=== PATIENT | male | born 1960 | race Caucasian/White ===

== ENCOUNTER → 2019-12-27 | Outpatient (CLI) | payer OTHER ==
[~2019-12-27] MED LIST: Aspirin EC81 MG PO; COMBIVENT RESPIM4 G1 INH; CYCL10 PO; DILT120ERA PO; ELIQUIS5 MG PO; FURO40 PO; GABA300 PO; Lisinopril2.5 MG PO; METO50ER PO; MIRALAX17 GM PO; NYAMYC TOP; OMEP20ER PO; PERCOCET 10-321 EAC1 PO; PERCOCET 10-321 EAC3 PO; POTA10T PO; SERT50 PO
[2019-12-27 22:24] LABS: BASOPHILS ABSOLUTE AUTO 0.03 K/mm3 (0.00-0.23); BASOPHILS PERCENT AUTO 1 % (0-2); EOSINOPHILS ABSOLUTE AUTO 0.34 K/mm3 (0.00-0.68); EOSINOPHILS PERCENT AUTO 5 % (0-6); Hematocrit 30.2 % (37.0-53.0); Hemoglobin 8.7 g/dL (13.5-17.5); IMMATURE GRAN ABSOLUTE AUTO 0.02 K/mm3 (0.00-0.10); IMMATURE GRAN PERCENT AUTO 0 % (0-1); LYMPHOCYTES ABSOLUTE AUTO 0.54 K/mm3 (0.84-5.20); LYMPHOCYTES PERCENT AUTO 8 % (21-46); MONOCYTES PERCENT AUTO 11 % (4-13); Mean Corpuscular HGB 25.8 pg (26.0-34.0); Mean Corpuscular HGB Conc 28.8 g/dL (31.5-36.5); Mean Corpuscular Volume 90 fL (80-100); Mean Platelet Volume 9.6 fL (9.1-12.4); NEUTROPHILS ABSOLUTE AUTO 4.93 K/mm3 (1.96-9.15); NEUTROPHILS PERCENT AUTO 75 % (41-73); Platelet Count 218 K/mm3 (150-400); RDW Coefficient Variation 19.5 % (11.7-14.2); RDW Standard Deviation 63.5 fL (35.1-46.3); Red Blood Cell Count 3.37 M/mm3 (4.30-5.90); White Blood Cell Count 6.56 K/mm3 (4.00-11.30)
== END | disposition home or self-care (01) ==
LOC: EDSTATUS 14:30 → LAB RH 22:16
PROVIDERS: Nurse Practitioner Family
DX: I48.20 Chronic atrial fibrillation, unspecified (principal)
CPT/HCPCS: 85025

== ENCOUNTER 2019-12-28 19:26 | Inpatient (IN) | payer OTHER ==
[~2019-12-28] VITALS: Ht 175.3 cm; Wt 185.9 kg
[2019-12-28] MEDS ORDERED: DILT120ERA PO (19:46)
[2019-12-28] MEDS ORDERED: FURO40 PO (19:46)
[2019-12-28] MEDS ORDERED: Aspirin EC81 MG PO (19:46)
[2019-12-28] MEDS ORDERED: OMEP20ER PO (19:47)
[2019-12-28] MEDS ORDERED: POTA10T PO (19:47)
[2019-12-28] MEDS ORDERED: Lisinopril2.5 MG PO (19:47)
[2019-12-28] MEDS ORDERED: SERT50 PO (19:48)
[2019-12-28] MEDS ORDERED: METO50ER PO (19:48)
[2019-12-28] MEDS ORDERED: ELIQUIS5 MG PO (19:48)
[2019-12-28] MEDS ORDERED: GABA300 PO (19:49)
[2019-12-28] MEDS ORDERED: COMBIVENT RESPIM4 G1 INH (19:49)
[2019-12-28] MEDS ORDERED: MIRALAX17 GM PO (19:50)
[2019-12-28] MEDS ORDERED: PERCOCET 10-321 EAC3 PO (19:52)
[2019-12-28] MEDS ORDERED: NYAMYC TOP (19:53)
[2019-12-28 20:35] LABS: Calcium, Ionized (POC) 1.17 mmol/L (1.10-1.46); Chloride (POC) 100 mmol/L (98-108); Glucose (ISTAT POC) 93 mg/dL (70-99); Hemoglobin (POC) 10.5 g/dL (13.5-17.5); Potassium (POC) 6.7 mmol/L (3.5-5.5); Sodium (POC) 133 mmol/L (135-148); Total CO2 (POC) 28 mmol/L (21-32)
[2019-12-28 22:22] LABS: BASOPHILS ABSOLUTE AUTO 0.05 K/mm3 (0.00-0.23); BASOPHILS PERCENT AUTO 1 % (0-2); EOSINOPHILS ABSOLUTE AUTO 0.45 K/mm3 (0.00-0.68); EOSINOPHILS PERCENT AUTO 6 % (0-6); Hematocrit 32.8 % (37.0-53.0); Hemoglobin 9.1 g/dL (13.5-17.5); IMMATURE GRAN ABSOLUTE AUTO 0.22 K/mm3 (0.00-0.10); IMMATURE GRAN PERCENT AUTO 3 % (0-1); LYMPHOCYTES ABSOLUTE AUTO 0.57 K/mm3 (0.84-5.20); LYMPHOCYTES PERCENT AUTO 8 % (21-46); MONOCYTES ABSOLUTE AUTO 0.98 K/mm3 (0.16-1.47); MONOCYTES PERCENT AUTO 13 % (4-13); Mean Corpuscular HGB 25.2 pg (26.0-34.0); Mean Corpuscular HGB Conc 27.7 g/dL (31.5-36.5); Mean Corpuscular Volume 91 fL (80-100); Mean Platelet Volume 9.6 fL (9.1-12.4); NEUTROPHILS ABSOLUTE AUTO 5.26 K/mm3 (1.96-9.15); NEUTROPHILS PERCENT AUTO 70 % (41-73); Platelet Count 225 K/mm3 (150-400); RDW Coefficient Variation 19.3 % (11.7-14.2); RDW Standard Deviation 64.4 fL (35.1-46.3); Red Blood Cell Count 3.61 M/mm3 (4.30-5.90); White Blood Cell Count 7.53 K/mm3 (4.00-11.30)
[2019-12-28 22:26] LABS: Bun/Creatinine Ratio 37.4 (12.0-20.0); Creatinine, Blood 1.87 mg/dL (0.60-1.20)
[2019-12-28 22:27] LABS: Albumin, Blood 2.8 g/dL (3.4-5.0); Albumin/Globulin Ratio 0.5 (0.8-1.8); Bilirubin, Total 0.7 mg/dL (0.1-1.0); Calcium, Blood 8.8 mg/dL (8.5-10.1); Globulin, Blood 5.5 g/dL (2.2-4.0); Total Protein, Blood 8.3 g/dL (6.4-8.2)
[2019-12-28 22:28] LABS: Potassium, Blood 6.4 mmol/L (3.5-5.5)
[2019-12-28 22:32] LABS: Magnesium, Blood 2.8 mg/dL (1.6-2.4)
--- NOTE | 2019-12-29 01:15 | NUR ---
ADMIT FROM ED. PT TX TO ICU BED VIA SLIDER SHEET. PT UNABLE TO ASSIST WITH TX, STATES HE IS MUCH WEAKER THAN USUAL. PT ALERT AND ORIENTED BUT A POOR HISTORIAN. UNABLE TO EXPLAIN THE WRAPS ON HIS LEGS NOR WHY HE CURRENTLY RESIDES AT [facility]. A-FIB ON THE WOOL CLASSER. ON 2L O2 VIA NC. WILL CONTINUE TO MONITOR.
[2019-12-29 02:30] LABS: BASOPHILS ABSOLUTE AUTO 0.05 K/mm3 (0.00-0.23); BASOPHILS PERCENT AUTO 1 % (0-2); EOSINOPHILS ABSOLUTE AUTO 0.42 K/mm3 (0.00-0.68); EOSINOPHILS PERCENT AUTO 7 % (0-6); Hematocrit 33.1 % (37.0-53.0); Hemoglobin 9.4 g/dL (13.5-17.5); IMMATURE GRAN ABSOLUTE AUTO 0.02 K/mm3 (0.00-0.10); IMMATURE GRAN PERCENT AUTO 0 % (0-1); LYMPHOCYTES ABSOLUTE AUTO 0.53 K/mm3 (0.84-5.20); LYMPHOCYTES PERCENT AUTO 8 % (21-46); MONOCYTES ABSOLUTE AUTO 0.71 K/mm3 (0.16-1.47); MONOCYTES PERCENT AUTO 11 % (4-13); Mean Corpuscular HGB 25.8 pg (26.0-34.0); Mean Corpuscular HGB Conc 28.4 g/dL (31.5-36.5); Mean Corpuscular Volume 91 fL (80-100); Mean Platelet Volume 9.4 fL (9.1-12.4); NEUTROPHILS ABSOLUTE AUTO 4.77 K/mm3 (1.96-9.15); NEUTROPHILS PERCENT AUTO 73 % (41-73); Platelet Count 229 K/mm3 (150-400); RDW Coefficient Variation 19.5 % (11.7-14.2); RDW Standard Deviation 65.1 fL (35.1-46.3); Red Blood Cell Count 3.64 M/mm3 (4.30-5.90)
[2019-12-29 02:51] LABS: Calcium, Blood 8.7 mg/dL (8.5-10.1); Creatinine, Blood 1.84 mg/dL (0.60-1.20); Potassium, Blood 6.3 mmol/L (3.5-5.5)
[2019-12-29 07:54] LABS: Albumin, Blood 2.7 g/dL (3.4-5.0); Anion Gap 2 mmol/L (6-16); Blood Urea Nitrogen 67 mg/dL (8-24); Bun/Creatinine Ratio 38.7 (12.0-20.0); CO2, Blood 29 mmol/L (21-32); Calcium, Blood 8.8 mg/dL (8.5-10.1); Chloride, Blood 104 mmol/L (98-108); Creatinine, Blood 1.73 mg/dL (0.60-1.20); Glomerular Filtration Rate 43 (60-); Glucose, Blood 85 mg/dL (70-99); Phosphorus, Blood 5.4 mg/dL (2.5-4.9); Potassium, Blood 5.9 mmol/L (3.5-5.5); Sodium, Blood 135 mmol/L (136-145)
[2019-12-29 12:27] LABS: Hematocrit 35.5 % (37.0-53.0); Hemoglobin 9.6 g/dL (13.5-17.5)
[2019-12-29 12:45] LABS: Calcium, Blood 9.1 mg/dL (8.5-10.1); Creatinine, Blood 1.71 mg/dL (0.60-1.20); Potassium, Blood 5.9 mmol/L (3.5-5.5)
--- NOTE | 2019-12-29 18:34 | NUR ---
SHIFT SUMMARY PT IS ALERT AND ORIENTED 2-3. SCOPE FOR TODAY WITH DR WARD WAS CANCELLED PT'S POTASSIUM LEVEL DIDN'T DECREASE ENOUGH. RECHECK K LEVEL DUE AT 1900 FOR POST MEDICATION INTERVENTIONS TO DECREASE POTASSIUM. WOUND CARE PROVIDED TO BLE WITH UNNA BOOTS APPLIED PER ORDERS. PT'S BP DID DECREASE THIS AFTERNOON AFTER IV LASIX, RECOVERED WITH SMALL FLUID BOLUS. MONITOR HAS SHOWN PT TO BE IN A-FIB, RATE CONTROLLED. PT REMAINS ON HOME O2 LEVEL OF 2L VIA NC.
[2019-12-30 03:48] LABS: BASOPHILS ABSOLUTE AUTO 0.03 K/mm3 (0.00-0.23); BASOPHILS PERCENT AUTO 1 % (0-2); EOSINOPHILS PERCENT AUTO 8 % (0-6); Hematocrit 31.8 % (37.0-53.0); Hemoglobin 8.8 g/dL (13.5-17.5); IMMATURE GRAN ABSOLUTE AUTO 0.03 K/mm3 (0.00-0.10); IMMATURE GRAN PERCENT AUTO 1 % (0-1); LYMPHOCYTES PERCENT AUTO 8 % (21-46); MONOCYTES ABSOLUTE AUTO 0.76 K/mm3 (0.16-1.47); MONOCYTES PERCENT AUTO 14 % (4-13); Mean Corpuscular HGB 25.7 pg (26.0-34.0); Mean Corpuscular HGB Conc 27.7 g/dL (31.5-36.5); Mean Corpuscular Volume 93 fL (80-100); Mean Platelet Volume 9.2 fL (9.1-12.4); NEUTROPHILS ABSOLUTE AUTO 3.74 K/mm3 (1.96-9.15); NEUTROPHILS PERCENT AUTO 70 % (41-73); Platelet Count 189 K/mm3 (150-400); RDW Coefficient Variation 19.1 % (11.7-14.2); RDW Standard Deviation 65.1 fL (35.1-46.3); Red Blood Cell Count 3.42 M/mm3 (4.30-5.90); White Blood Cell Count 5.36 K/mm3 (4.00-11.30)
[2019-12-30 04:06] LABS: Bun/Creatinine Ratio 37.2 (12.0-20.0); Calcium, Blood 8.6 mg/dL (8.5-10.1); Creatinine, Blood 1.56 mg/dL (0.60-1.20); Potassium, Blood 5.2 mmol/L (3.5-5.5)
--- NOTE | 2019-12-30 05:25 | NUR ---
shift summary pt transferred from icu and used overhead lift to get pt onto hospital bed. pt is of bariatric size and charge nurse called/requested baritric bed to help make pt rest more comfortably/make bed changes/turns safer. cbg 92. pt alert and oriented x2 with intermittent confusion. on 3lnc - maintaining sats >90%. verified tele with monitor room - a fib, with rate controlled. no c/o chest pain. able to let staff know when needs to urinate - voided 750ml. incontinent of stool - no bm overnight. pt made npo after midnight in the event he would get egd today. hgb 8.8/hct 31.8, potassium 5.2. pt c/o pain in bilat legs - oxy x1. vss. call light within reach, bed in lowest position. will continue to monitor.
--- NOTE | 2019-12-30 19:02 | NUR ---
PAIN MANAGEMENT CALLED INTO ROOM BY PATIENT REQUESTING PAIN MEDICATION. REPORTS 8/10 PAIN IN BILATERAL LEGS. REPORTS AT HOME HE TAKES HIS OXYCODONE/ACETAMINOPHEN EVERY 6 HOURS INSTEAD OF EVERY 12. UNABLE TO FIND RECORD OF THIS BASED ON PT'S HOME MEDICATION LIST. NOTIFIED DALE CISNEROS NP OF PATIENT REQUEST. NEW ORDER FOR ONE TIME DOSE OF OXYCODONE/ACETAMINOPHEN 5-325.
--- NOTE | 2019-12-30 19:10 | NUR ---
ASSUMED CARE PT A&O X3; SEEMS FORGETFUL AT TIMES; WATCHING TV W/ NO DISTRESS NOTED; VSS; AFIB NOTED ON TELE; O2 SATS >93 ON 3L NC; CALL LIGHT IN REACH; BED IN LOWEST POSITION.
--- NOTE | 2019-12-30 19:43 | NUR ---
SHIFT SUMMARY PT A&Ox2-3; CONFUSED AT TIMES; APPEARS TO BE SLEEPING FOR MAJORITY OF SHIFT. CBG THIS AM 58; NOTIIFED DR ALSTON AND APPLE JUICE PROVIDED; RECEHCEK AT 53; NOTIFIED DR ALSTON WITH NEW ORDERS FOR 1 AMP OF D50; RECHECK AT 91. CALLED DR BERGMAN TO CLARIFY OF PLANS OF PROCEDURE; OK TO FEED PATIENT AND PLANS FOR SCOPE ON 12/30 PLANS FOR NPO AT RI. CBG FOR REMAINDER OF SHIFT 70'S. PT REPORTS CHRONIC PAIN TO BLE; MEDICATED PER EMAR. PT SOB WITH ACTIVITY ON 3L O2 VIA NC; HOME DOSE 2L O2 VIA NC. PT DENIES CHEST PAIN, NAUSEA AND DIZZINESS. MEPILEX PLACED TO COCCYX; EXCORIATION TO PERIAREA. VSS. PT REPOSTIONED Q2 HRS ALLOWED. NO OTHER ACUTE CHANGES NOTED DURING SHIFT. REPORT GIVEN TO ONCOMING RN.
[2019-12-31 04:12] LABS: BASOPHILS ABSOLUTE AUTO 0.04 K/mm3 (0.00-0.23); BASOPHILS PERCENT AUTO 1 % (0-2); EOSINOPHILS ABSOLUTE AUTO 0.34 K/mm3 (0.00-0.68); EOSINOPHILS PERCENT AUTO 7 % (0-6); Hematocrit 31.6 % (37.0-53.0); Hemoglobin 8.6 g/dL (13.5-17.5); IMMATURE GRAN ABSOLUTE AUTO 0.02 K/mm3 (0.00-0.10); IMMATURE GRAN PERCENT AUTO 0 % (0-1); LYMPHOCYTES ABSOLUTE AUTO 0.45 K/mm3 (0.84-5.20); LYMPHOCYTES PERCENT AUTO 9 % (21-46); MONOCYTES ABSOLUTE AUTO 0.67 K/mm3 (0.16-1.47); MONOCYTES PERCENT AUTO 13 % (4-13); Mean Corpuscular HGB Conc 27.2 g/dL (31.5-36.5); Mean Corpuscular Volume 92 fL (80-100); Mean Platelet Volume 9.2 fL (9.1-12.4); NEUTROPHILS ABSOLUTE AUTO 3.72 K/mm3 (1.96-9.15); NEUTROPHILS PERCENT AUTO 71 % (41-73); Platelet Count 200 K/mm3 (150-400); RDW Coefficient Variation 18.8 % (11.7-14.2); RDW Standard Deviation 63.2 fL (35.1-46.3); Red Blood Cell Count 3.44 M/mm3 (4.30-5.90); White Blood Cell Count 5.24 K/mm3 (4.00-11.30)
[2019-12-31 05:11] LABS: Anion Gap 2 mmol/L (6-16); Blood Urea Nitrogen 49 mg/dL (8-24); CO2, Blood 30 mmol/L (21-32); Calcium, Blood 8.7 mg/dL (8.5-10.1); Chloride, Blood 107 mmol/L (98-108); Creatinine, Blood 1.29 mg/dL (0.60-1.20); Glomerular Filtration Rate >60 (60-); Glucose, Blood 77 mg/dL (70-99); Magnesium, Blood 2.5 mg/dL (1.6-2.4); Sodium, Blood 139 mmol/L (136-145)
--- NOTE | 2019-12-31 05:13 | NUR ---
SHIFT SUMMARY PT A&O X 3; DENIES CHEST PAIN; VSS; AFIB NOTED ON TELE; O2 SATS >93 ON 4L NC; PT STATES HE IS ON 2L NC AT BASELINE; DENIES SOB; PT SLEPT SEVERAL HOURS; NPO AT MIDNIGHT IN PREPARATION FOR EGD; CALL LIGHT IN REACH; BED IN LOWEST POSITION; WILL CONTINUE TO MONITOR CLOSELY UNTIL HAND OFF TO DAY SHIFT RN.
--- NOTE | 2019-12-31 11:20 | NUR ---
ASSUMED CARE OF PATIENT. REPORT RECEIVED FROM FAMILIA PLASENCIA RN.
[2019-12-31] MEDS ORDERED: CYCL10 PO (11:58)
[2019-12-31] MEDS ORDERED: PERCOCET 10-321 EAC1 PO ×2 (11:59)
--- NOTE | 2019-12-31 13:12 | NUR ---
CALLED DR. HERMAN. NOTIFIED HIM PATIENT'S CBG AT 1100 WAS 64, CBG AT 1200 WAS 72, AND CBG AT 1300 WAS 66. PATIENT HAS BEEN NPO SINCE MIDNIGHT. PER DAYSURGERY, HIS PROCEDURE IS SCHEDULED FOR 1500. ORDERS RECEIVED FOR 1 AMP D50 IV X1 NOW. PATIENT ALSO REPORTING PAIN. HE TAKES HIS OXYCODONE Q6H PRN PAIN AT HOME AND IT IS SCHEDULED FOR Q12H HERE ON THE EMAR. ORDERS RECEIVED FOR OXYCODONE 10 / ACETAMINOPHEN 325 1 TAB PO Q6H PRN PAIN.
--- NOTE | 2019-12-31 16:16 | NUR ---
PATIENT DOWN TO DAYSURGERY VIA BED. NOTIFIED DAY SURGERY RN THAT THE TWO ENEMAS THAT THE PATIENT RECEIVED HAVE NOT YET PRODUCED ANY STOOL.
--- NOTE | 2019-12-31 16:20 | NUR ---
INTO [facility] VIA [facility] ADMISSION TO UNIT STARTED.
--- NOTE | 2019-12-31 16:47 | NUR ---
12/31/19 9607 Jass Asher See Anesthesia record. Patient to ENDO 1MONITOR INTACT WITH CONTINUOUS PULSE OXIMETRY AND INTERMITTENT BP.O2 VIA N/C INTACT THROUGHOUT SEDATION/PROCEDURE.
--- NOTE | 2019-12-31 17:55 | NUR ---
PATIENT RETURNED TO ROOM FROM DAYSURGERY AT 1725. A/OX3. HE DOES NOT WANT TO SIT IN THE RECLINER. WANTS TO GO BACK TO BED. USED CEILING LIFT TO TRANSFER PATIENT FROM [facility] TO BED. ADA DIET NOTED, PATIENT GIVEN APPLE JUICE. AT 1755, SPO2 NOTED TO BE IN UPPER 80'S ON 3L O2 VIA NC. INCREASED O2 TO 4L AND SPO2 INCREASED TO 90'S.
--- NOTE | 2019-12-31 19:21 | NUR ---
ASSUMED CARE OF PATIENT. REPORT RECEIVED FROM FAMILIA PLASENCIA RN.
--- NOTE | 2019-12-31 23:30 | NUR ---
ASSUMPTION OF CARE RECEIVED BEDSIDE REPORT FROM COURTNEY ROJO AND ASSUMED CARE. PT IS RESTING IN BARIATRIC BED, HOB ELEVATED, AWAKE AND ALERT. DENIES COMPLAINTS AT THIS TIME. VSS, NC AT 2L O2, TELE SHOWS AFLUTTER IN THE 80'S. DISCHARGE PLANNING TO [facility], POSSIBLY IN THE AM. WILL CONTINUE TO MONITOR AND WILL CONTINUE PLAN OF CARE.
--- NOTE | 2019-12-31 23:56 | NUR ---
SHIFT SUMMARY: PATIENT A/OX3. OXYCODONE GIVEN FOR CHRONIC PAIN. HAD LOW CBG TODAY WHILE HE WAS NPO, 1 AMP D50 GIVEN. ENEMAS UNSUCCESSFUL IN PRODUCING STOOL. HAD PROCEDURE THIS AFTERNOON. NOW TOLERATING ADA DIET. TURNED Q2H. PREVENTATIVE ALLEVYN DRESSING PLACED TO COCCYX AND ALLEVYN DRESSING PLACED TO OPEN SORE ON PATIENT'S POSTERIOR LEFT UPPER THIGH, PICTURES TAKEN FOR CHART WITH PATIENT CONSENT. UNNA BOOTS IN PLACE. REPORT GIVEN TO ALIA BERNAL.
[2020-01-01 04:26] LABS: BASOPHILS ABSOLUTE AUTO 0.03 K/mm3 (0.00-0.23); BASOPHILS PERCENT AUTO 1 % (0-2); EOSINOPHILS ABSOLUTE AUTO 0.34 K/mm3 (0.00-0.68); EOSINOPHILS PERCENT AUTO 8 % (0-6); Hematocrit 31.3 % (37.0-53.0); Hemoglobin 8.5 g/dL (13.5-17.5); IMMATURE GRAN ABSOLUTE AUTO 0.01 K/mm3 (0.00-0.10); IMMATURE GRAN PERCENT AUTO 0 % (0-1); LYMPHOCYTES ABSOLUTE AUTO 0.46 K/mm3 (0.84-5.20); LYMPHOCYTES PERCENT AUTO 10 % (21-46); MONOCYTES ABSOLUTE AUTO 0.64 K/mm3 (0.16-1.47); MONOCYTES PERCENT AUTO 14 % (4-13); Mean Corpuscular HGB 25.1 pg (26.0-34.0); Mean Corpuscular HGB Conc 27.2 g/dL (31.5-36.5); Mean Corpuscular Volume 93 fL (80-100); Mean Platelet Volume 9.3 fL (9.1-12.4); NEUTROPHILS ABSOLUTE AUTO 3.07 K/mm3 (1.96-9.15); NEUTROPHILS PERCENT AUTO 67 % (41-73); Platelet Count 186 K/mm3 (150-400); RDW Coefficient Variation 18.9 % (11.7-14.2); RDW Standard Deviation 64.4 fL (35.1-46.3); Red Blood Cell Count 3.38 M/mm3 (4.30-5.90); White Blood Cell Count 4.55 K/mm3 (4.00-11.30)
[2020-01-01 04:54] LABS: Anion Gap 3 mmol/L (6-16); Blood Urea Nitrogen 39 mg/dL (8-24); Bun/Creatinine Ratio 31.7 (12.0-20.0); CO2, Blood 30 mmol/L (21-32); Chloride, Blood 107 mmol/L (98-108); Creatinine, Blood 1.23 mg/dL (0.60-1.20); Glomerular Filtration Rate >60 (60-); Glucose, Blood 81 mg/dL (70-99); Potassium, Blood 4.6 mmol/L (3.5-5.5); Sodium, Blood 140 mmol/L (136-145)
--- NOTE | 2020-01-01 07:55 | NUR ---
SHIFT SUMMARY PT HAS RESTED WELL, C/O CHRONIC PAIN "BELOW THE WAIST" AND EXPRESSED RELIEF WITH PRN MED (SEE MAR). NO ACUTE CHANGES THROUGH THE SHIFT, PLAN IS FOR DISCHARGE BACK TO [facility] - POSSIBLY TODAY. IMPROVING KIDNEY FUNCTION ON LABS THIS AM AND STABLE H&H. PLAN FOR OUTPT SCOPE IN THE FUTURE SINCE FLEX SIGMOID WAS UNABLE TO BE PERFORMED YESTERDAY. WILL GIVE BEDSIDE REPORT TO JOAQUÍN.
--- NOTE | 2020-01-01 15:52 | NUR ---
PT DISCHARGED TO [facility], REPORT HAS BEEN GIVEN TO JAYDA NURSE AT [facility].
== END 2020-01-01 15:51 | DRG 683 ==
LOC: ER 19:26 → PCU 22:31 → ICUW 22:31 → ICUE 22:31 → PCU 12-29 19:40
PROVIDERS: Emergency Medicine; Internal Medicine; Student in an Organized Health Care Education/Training Program; ADMIT Family Medicine
PROC: 0DB68ZX Excision of Stomach, Via Natural or Artificial Opening Endoscopic, Diagnostic (ICD-10-PCS; principal; 2019-12-31 07:30)
DX: N17.9 Acute kidney failure, unspecified (principal); Z68.43 Body mass index [BMI] 50.0-59.9, adult; E66.2 Morbid (severe) obesity with alveolar hypoventilation; I50.32 Chronic diastolic (congestive) heart failure; I48.20 Chronic atrial fibrillation, unspecified; E87.5 Hyperkalemia; Z20.828 Contact with and (suspected) exposure to other viral communicable diseases; Z87.891 Personal history of nicotine dependence; Z99.81 Dependence on supplemental oxygen; Z79.01 Long term (current) use of anticoagulants; Z79.82 Long term (current) use of aspirin; K21.9 Gastro-esophageal reflux disease without esophagitis; J44.9 Chronic obstructive pulmonary disease, unspecified; E78.1 Pure hyperglyceridemia; I87.8 Other specified disorders of veins; M79.2 Neuralgia and neuritis, unspecified; K59.09 Other constipation; E86.0 Dehydration; I95.2 Hypotension due to drugs; T50.1X5A Adverse effect of loop [high-ceiling] diuretics, initial encounter; Y92.230 Patient room in hospital as the place of occurrence of the external cause; I11.0 Hypertensive heart disease with heart failure; F41.8 Other specified anxiety disorders; E11.649 Type 2 diabetes mellitus with hypoglycemia without coma
CPT/HCPCS: 36415; 71045; 76770; 80047; 80048; 80053; 80069; 82607; 82728; 82746; 82947; 83540; 83550; 83735; 84100; 84132; 85014; 85018; 85025; 86850; 86900; 86901; 88305; 88342; 93005; 93010; 94760; 96361; 96374; 96375; 97110; 97162; 97165; 99284-25; A9270; C9113; J0610; J1815; J1940; J2704; J7030; J7040; J7120; J7799; U0004

== ENCOUNTER 2020-01-03 16:58 | Emergency (ER) | payer OTHER ==
[~2020-01-03] VITALS: Ht 175.3 cm; Wt 156.5 kg
[2020-01-03 17:42] LABS: Hematocrit 32.2 % (37.0-53.0); Hemoglobin 9.1 g/dL (13.5-17.5); Mean Corpuscular HGB 25.6 pg (26.0-34.0); Mean Corpuscular HGB Conc 28.3 g/dL (31.5-36.5); Mean Corpuscular Volume 90 fL (80-100); Mean Platelet Volume 9.8 fL (9.1-12.4); Platelet Count 194 K/mm3 (150-400); RDW Coefficient Variation 18.6 % (11.7-14.2); RDW Standard Deviation 61.8 fL (35.1-46.3); Red Blood Cell Count 3.56 M/mm3 (4.30-5.90); White Blood Cell Count 5.12 K/mm3 (4.00-11.30)
[2020-01-03 18:00] LABS: International Normalized Ratio 1.23
[2020-01-03 18:03] LABS: BASOPHILS ABSOLUTE MAN 0.25 K/mm3 (0.00-0.23); BASOPHILS PERCENT MAN 5 % (0-2); EOSINOPHILS ABSOLUTE MAN 0.92 K/mm3 (0.00-0.68); EOSINOPHILS PERCENT MAN 18 % (0-6); LYMPHOCYTES ABSOLUTE MAN 0.51 K/mm3 (0.84-5.20); LYMPHOCYTES PERCENT MAN 10 % (21-46); MONOCYTES ABSOLUTE MAN 0.56 K/mm3 (0.16-1.47); MONOCYTES PERCENT MAN 11 % (4-13); NEUTROPHILS ABSOLUTE MAN 2.86 K/mm3 (1.96-9.15); SEG NEUTROPHILS PERCENT MAN 56 % (41-73); TOTAL CELLS COUNTED 100
[2020-01-03 18:04] LABS: Alanine Aminotransfer (ALT/SGP 10 U/L (12-78); Albumin, Blood 2.5 g/dL (3.4-5.0); Albumin/Globulin Ratio 0.5 (0.8-1.8); Alk Phos 117 U/L (50-136); Anion Gap 2 mmol/L (6-16); Aspartate Aminotrans (AST/SGOT 16 U/L (12-37); Bilirubin, Total 0.6 mg/dL (0.1-1.0); Blood Urea Nitrogen 31 mg/dL (8-24); Bun/Creatinine Ratio 27.9 (12.0-20.0); CO2, Blood 31 mmol/L (21-32); Calcium, Blood 8.6 mg/dL (8.5-10.1); Chloride, Blood 106 mmol/L (98-108); Creatinine, Blood 1.11 mg/dL (0.60-1.20); Globulin, Blood 5.5 g/dL (2.2-4.0); Glomerular Filtration Rate >60 (60-); Glucose, Blood 103 mg/dL (70-99); Potassium, Blood 4.8 mmol/L (3.5-5.5); Sodium, Blood 139 mmol/L (136-145)
== END 2020-01-03 19:55 | disposition home or self-care (01) ==
LOC: ER 16:58
PROVIDERS: Physician Assistant
DX: R19.5 Other fecal abnormalities (principal); Z79.01 Long term (current) use of anticoagulants; I11.0 Hypertensive heart disease with heart failure; I50.9 Heart failure, unspecified; E11.9 Type 2 diabetes mellitus without complications; I48.91 Unspecified atrial fibrillation; J44.9 Chronic obstructive pulmonary disease, unspecified; Z87.891 Personal history of nicotine dependence
CPT/HCPCS: 36415; 74176; 80053; 82272; 85025; 85610; 96374; 99285-25; C9113; J7030

== ENCOUNTER → 2020-02-15 | Outpatient (CLI) | payer OTHER ==
[~2020-02-15] MED LIST changes: +KLOR-CON 1010 ME1 PO; +MECL12.5 PO; +NEURONTIN300 MG PO; +PANTOPRAZOLE SO40 M2 PO
[2020-02-15 10:42] LABS: BASOPHILS ABSOLUTE AUTO 0.03 K/mm3 (0.00-0.23); BASOPHILS PERCENT AUTO 0 % (0-2); EOSINOPHILS ABSOLUTE AUTO 0.66 K/mm3 (0.00-0.68); EOSINOPHILS PERCENT AUTO 9 % (0-6); Hematocrit 34.6 % (37.0-53.0); Hemoglobin 9.7 g/dL (13.5-17.5); IMMATURE GRAN ABSOLUTE AUTO 0.03 K/mm3 (0.00-0.10); IMMATURE GRAN PERCENT AUTO 0 % (0-1); LYMPHOCYTES ABSOLUTE AUTO 0.76 K/mm3 (0.84-5.20); LYMPHOCYTES PERCENT AUTO 11 % (21-46); MONOCYTES ABSOLUTE AUTO 0.65 K/mm3 (0.16-1.47); MONOCYTES PERCENT AUTO 9 % (4-13); Mean Corpuscular HGB 22.6 pg (26.0-34.0); Mean Corpuscular Volume 81 fL (80-100); Mean Platelet Volume 10.5 fL (9.1-12.4); NEUTROPHILS ABSOLUTE AUTO 5.13 K/mm3 (1.96-9.15); NEUTROPHILS PERCENT AUTO 71 % (41-73); Platelet Count 176 K/mm3 (150-400); RDW Coefficient Variation 17.9 % (11.7-14.2); RETICULOCYTE ABSOLUTE 0.0699 M/mm3 (0.0200-0.1100); RETICULOCYTE COUNT PERCENT 1.63 % (0.50-2.50); Red Blood Cell Count 4.29 M/mm3 (4.30-5.90); White Blood Cell Count 7.26 K/mm3 (4.00-11.30)
[2020-02-15 10:54] LABS: Albumin, Blood 2.8 g/dL (3.4-5.0); Albumin/Globulin Ratio 0.5 (0.8-1.8); Bun/Creatinine Ratio 31.6 (12.0-20.0); Calcium, Blood 8.9 mg/dL (8.5-10.1); Creatinine, Blood 1.36 mg/dL (0.60-1.20); Globulin, Blood 5.1 g/dL (2.2-4.0); Phosphorus, Blood 4.2 mg/dL (2.5-4.9); Total Protein, Blood 7.9 g/dL (6.4-8.2)
[2020-02-15 11:19] LABS: Bilirubin, Total 0.9 mg/dL (0.1-1.0)
[2020-02-15 12:42] LABS: Percent Saturation 7.7 % (20.0-50.0)
[2020-02-15 12:44] LABS: CHOL/HDL RATIO 2.4; Cholesterol 94 mg/dL (50-200); HDL Cholesterol 39 mg/dL (>39); LDL/HDL RATIO 1.1; Low Density Lipoprotein Chol 45 mg/dL (0-110); Triglycerides 51 mg/dL (30-160); Very Low Density Lipoprot Chol 10 mg/dL (6-32)
== END | disposition home or self-care (01) ==
LOC: LAB RH 08:22 → EDSTATUS 11:32
PROVIDERS: Hospitalist; Internal Medicine Nephrology
DX: N18.2 Chronic kidney disease, stage 2 (mild) (principal); D63.1 Anemia in chronic kidney disease; N17.8 Other acute kidney failure; E87.5 Hyperkalemia; L03.116 Cellulitis of left lower limb; E78.2 Mixed hyperlipidemia
CPT/HCPCS: 80053; 80061; 82607; 82728; 82746; 83540; 83550; 84100; 85025; 85045

== ENCOUNTER 2020-04-18 16:58 | Emergency (ER) | payer OTHER ==
[~2020-04-18] VITALS: Ht 180.3 cm; Wt 136.1 kg
[~2020-04-18 16:58] MED LIST changes: -KLOR-CON 1010 ME1 PO; -MECL12.5 PO; -NEURONTIN300 MG PO; -PANTOPRAZOLE SO40 M2 PO
[2020-04-18 17:53] LABS: BASOPHILS ABSOLUTE AUTO 0.04 K/mm3 (0.00-0.23); BASOPHILS PERCENT AUTO 1 % (0-2); EOSINOPHILS ABSOLUTE AUTO 0.41 K/mm3 (0.00-0.68); EOSINOPHILS PERCENT AUTO 5 % (0-6); Hematocrit 40.6 % (37.0-53.0); Hemoglobin 11.6 g/dL (13.5-17.5); IMMATURE GRAN ABSOLUTE AUTO 0.03 K/mm3 (0.00-0.10); IMMATURE GRAN PERCENT AUTO 0 % (0-1); LYMPHOCYTES ABSOLUTE AUTO 0.73 K/mm3 (0.84-5.20); LYMPHOCYTES PERCENT AUTO 10 % (21-46); MONOCYTES ABSOLUTE AUTO 0.72 K/mm3 (0.16-1.47); MONOCYTES PERCENT AUTO 9 % (4-13); Mean Corpuscular HGB Conc 28.6 g/dL (31.5-36.5); Mean Corpuscular Volume 81 fL (80-100); Mean Platelet Volume 9.2 fL (9.1-12.4); NEUTROPHILS ABSOLUTE AUTO 5.73 K/mm3 (1.96-9.15); NEUTROPHILS PERCENT AUTO 75 % (41-73); Platelet Count 283 K/mm3 (150-400); RDW Coefficient Variation 19.6 % (11.7-14.2); RDW Standard Deviation 57.9 fL (35.1-46.3); Red Blood Cell Count 5.04 M/mm3 (4.30-5.90); White Blood Cell Count 7.66 K/mm3 (4.00-11.30)
[2020-04-18 18:10] LABS: Source, Urine Clean Catch
[2020-04-18 18:17] LABS: Alanine Aminotransfer (ALT/SGP 12 U/L (12-78); Albumin, Blood 2.9 g/dL (3.4-5.0); Albumin/Globulin Ratio 0.5 (0.8-1.8); Alk Phos 95 U/L (50-136); Anion Gap 5 mmol/L (6-16); Aspartate Aminotrans (AST/SGOT 16 U/L (12-37); Bilirubin, Total 1.1 mg/dL (0.1-1.0); Blood Urea Nitrogen 15 mg/dL (8-24); Bun/Creatinine Ratio 13.9 (12.0-20.0); CO2, Blood 26 mmol/L (21-32); Calcium, Blood 9.4 mg/dL (8.5-10.1); Chloride, Blood 107 mmol/L (98-108); Creatinine, Blood 1.08 mg/dL (0.60-1.20); Globulin, Blood 5.3 g/dL (2.2-4.0); Glomerular Filtration Rate >60 (60-); Glucose, Blood 81 mg/dL (70-99); Magnesium, Blood 2.1 mg/dL (1.6-2.4); Potassium, Blood 4.5 mmol/L (3.5-5.5); Sodium, Blood 138 mmol/L (136-145); Total Protein, Blood 8.2 g/dL (6.4-8.2); Troponin I <0.015 ng/mL (0.000-0.040)
[2020-04-18 18:19] LABS: Appearance, Urine Clear (Clear); Blood, Urine Neg (Neg); Color, Urine Yellow (P-Yellow); Glucose Qualitative, Urine Neg (Neg); Ketones, Urine 1+ (Neg); Leukocyte Esterase, Urine 1+ (Neg); Nitrite, Urine Neg (Neg); Protein, Urine 2+ (Neg); Specific Gravity, Urine 1.025 (1.003-1.022); Urobilinogen, Urine 1+ (Normal)
[2020-04-18 18:40] LABS: Bilirubin, Urine 1+ (Neg)
[2020-04-18 18:41] LABS: Bacteria Few /hpf; Red Blood Cells, Urine 0-2 /hpf (0-2); Squamous Epithelial Cells Few /hpf (Few)
[2020-04-18] MEDS ORDERED: MECL12.5 PO (19:52)
== END 2020-04-18 20:10 | disposition home or self-care (01) ==
LOC: ER 16:58
PROVIDERS: Emergency Medicine
DX: I48.91 Unspecified atrial fibrillation (principal); E66.01 Morbid (severe) obesity due to excess calories; R53.1 Weakness; I11.0 Hypertensive heart disease with heart failure; I50.9 Heart failure, unspecified; J44.9 Chronic obstructive pulmonary disease, unspecified; E11.9 Type 2 diabetes mellitus without complications; Z87.891 Personal history of nicotine dependence; Z79.899 Other long term (current) drug therapy; Z79.01 Long term (current) use of anticoagulants; Z79.82 Long term (current) use of aspirin
CPT/HCPCS: 71045; 80053; 81001; 83735; 83880; 84484; 85025; 87086; 93005; 93010; 99285-25; A9270

== ENCOUNTER 2020-05-20 13:56 | Observation (INO) | payer OTHER ==
[~2020-05-20] VITALS: Ht 175.3 cm; Wt 164.1 kg
[~2020-05-20 13:56] MED LIST changes: +MECL12.5 PO
[2020-05-20 15:16] LABS: BASOPHILS ABSOLUTE AUTO 0.05 K/mm3 (0.00-0.23); BASOPHILS PERCENT AUTO 1 % (0-2); EOSINOPHILS ABSOLUTE AUTO 0.54 K/mm3 (0.00-0.68); EOSINOPHILS PERCENT AUTO 7 % (0-6); Hematocrit 38.9 % (37.0-53.0); Hemoglobin 11.2 g/dL (13.5-17.5); IMMATURE GRAN ABSOLUTE AUTO 0.04 K/mm3 (0.00-0.10); IMMATURE GRAN PERCENT AUTO 1 % (0-1); LYMPHOCYTES ABSOLUTE AUTO 0.55 K/mm3 (0.84-5.20); LYMPHOCYTES PERCENT AUTO 7 % (21-46); MONOCYTES ABSOLUTE AUTO 0.75 K/mm3 (0.16-1.47); MONOCYTES PERCENT AUTO 10 % (4-13); Mean Corpuscular HGB 22.8 pg (26.0-34.0); Mean Corpuscular HGB Conc 28.8 g/dL (31.5-36.5); Mean Corpuscular Volume 79 fL (80-100); Mean Platelet Volume 9.7 fL (9.1-12.4); NEUTROPHILS ABSOLUTE AUTO 5.96 K/mm3 (1.96-9.15); NEUTROPHILS PERCENT AUTO 76 % (41-73); Platelet Count 283 K/mm3 (150-400); RDW Coefficient Variation 18.1 % (11.7-14.2); RDW Standard Deviation 51.5 fL (35.1-46.3); Red Blood Cell Count 4.92 M/mm3 (4.30-5.90); White Blood Cell Count 7.89 K/mm3 (4.00-11.30)
[2020-05-20 15:30] LABS: International Normalized Ratio 1.15; Prothrombin Time Results 12.2 Sec (9.7-11.5)
[2020-05-20 15:31] LABS: Alanine Aminotransfer (ALT/SGP 13 U/L (12-78); Albumin, Blood 2.7 g/dL (3.4-5.0); Albumin/Globulin Ratio 0.5 (0.8-1.8); Alk Phos 142 U/L (50-136); Anion Gap 5 mmol/L (6-16); Aspartate Aminotrans (AST/SGOT 20 U/L (12-37); Bilirubin, Total 1.3 mg/dL (0.1-1.0); Blood Urea Nitrogen 16 mg/dL (8-24); CO2, Blood 27 mmol/L (21-32); Calcium, Blood 8.9 mg/dL (8.5-10.1); Chloride, Blood 106 mmol/L (98-108); Globulin, Blood 5.7 g/dL (2.2-4.0); Glomerular Filtration Rate >60 (60-); Glucose, Blood 101 mg/dL (70-99); Sodium, Blood 138 mmol/L (136-145); Total Protein, Blood 8.4 g/dL (6.4-8.2)
[2020-05-20 19:01] LABS: Creatine Kinase MB 1.4 ng/mL (0.0-3.6); Creatine Kinase MB Index 3.8 (0.0-4.0); Uric Acid, Blood 5.8 mg/dL (3.5-7.2)
[2020-05-20] MEDS ORDERED: KLOR-CON 1010 ME1 PO (20:59)
[2020-05-20] MEDS ORDERED: NEURONTIN300 MG PO (20:59)
[2020-05-20] MEDS ORDERED: PANTOPRAZOLE SO40 M2 PO (21:00)
[2020-05-20 21:19] LABS: Free Thyroxine 1.46 ng/dL (0.70-1.60)
[2020-05-20 21:20] LABS: Triiodothyronine, Free 2.38 pg/mL (2.18-3.98)
--- NOTE | 2020-05-20 23:05 | NUR ---
ADMISSION: PATIENT IS RECIEVED VIA STRETCHER. SLIDE OVER TO THE BED WITH ASSIST OF 3. ORIENTED TO ROOM AND CALL LARA. VSS, SKIN HAS MANY REDDENED AREAS IN THE GROIN AREA AND UNDER PANUS. BUTTOCKS DOWN BILAT THIGHTS SKIN IS DARKENED. CONSENT WAS GIVEN AND PHOTOS WERE TAKEN. AREAS ARE CLEANES AND ZINC CREAM APPLIED.
--- NOTE | 2020-05-21 02:44 | NUR ---
: PATIENT IS UNABLE TO VOID. URINE CULTURE IS ORDERED, PATIENT REFUSED STRAIGHT CATH IN ER AND IS STILL RELUCTANT. DALE CISNEROS CHICLE GRINDER FEEDER WAS IN TO SEE PATIENT AND SPOKE WITH PATIENT WHO AGREED TO STRAIGHT CATH WITH PREMED. LIDOCAIN AND IV DILAUDID WAS GIVEN FOR THIS PROCEEDURE AND WOUND CARE. WHICH WAS VERY PAINFUL FOR PATIENT. RADIAL DRILL OPERATOR FOR PLASTIC AND CHARGE NURSE WERE UNABLE TO STRAIGHT CATH DUE TO FORESKIN HAS NOT BEEN RETRACTED IN YEARS, PER PATIENT. UNABLE TO VISUALIZE MEATUS OR FEEL IT. PATIENT TOLERATED PROCEEDURE FAIR. DR WAHL IS NOTIFIED OF THE ABOVE INFORMATION. NO NEW ORDERS AT THIS TIME. PATIENT IS CONFIDENT THAT HE WILL BE ABLE TO URINATE SPONTANIOUSLY AND CONTINUES TO TRY. PATIENT IS TOLD TO TAKE FLUIDS SPARINGLY UNTIL HE IS ABLE TO VOID.
--- NOTE | 2020-05-21 05:20 | NUR ---
SHIFT SUMMARY: PATIENT WAS ABLE TO VOID 100 MLS OF DARK AMANDA URINE, SPECIMIN NOT SENT DUE TO CONTAMINATION. PATIENT IS ENCOURAGED TO LIMIT FLUIDS UNTIL BLADDER CAN EFFECTIVLEY BE EMPTIED. PATIENT HAS GENERALIZED PAIN AT BASELINE AND OXYCODONE X1 AND ROXICODONE X1 ARE GIVEN WITH FAIR EFFECT.
[2020-05-21 05:23] LABS: BASOPHILS ABSOLUTE AUTO 0.05 K/mm3 (0.00-0.23); BASOPHILS PERCENT AUTO 1 % (0-2); EOSINOPHILS ABSOLUTE AUTO 0.54 K/mm3 (0.00-0.68); EOSINOPHILS PERCENT AUTO 9 % (0-6); Hematocrit 36.2 % (37.0-53.0); Hemoglobin 10.2 g/dL (13.5-17.5); IMMATURE GRAN ABSOLUTE AUTO 0.01 K/mm3 (0.00-0.10); IMMATURE GRAN PERCENT AUTO 0 % (0-1); LYMPHOCYTES ABSOLUTE AUTO 0.72 K/mm3 (0.84-5.20); LYMPHOCYTES PERCENT AUTO 11 % (21-46); MONOCYTES ABSOLUTE AUTO 0.79 K/mm3 (0.16-1.47); MONOCYTES PERCENT AUTO 12 % (4-13); Mean Corpuscular HGB 22.6 pg (26.0-34.0); Mean Corpuscular HGB Conc 28.2 g/dL (31.5-36.5); Mean Corpuscular Volume 80 fL (80-100); Mean Platelet Volume 9.4 fL (9.1-12.4); NEUTROPHILS ABSOLUTE AUTO 4.26 K/mm3 (1.96-9.15); NEUTROPHILS PERCENT AUTO 67 % (41-73); Platelet Count 230 K/mm3 (150-400); RDW Standard Deviation 52.5 fL (35.1-46.3); Red Blood Cell Count 4.52 M/mm3 (4.30-5.90); White Blood Cell Count 6.37 K/mm3 (4.00-11.30)
[2020-05-21 05:52] LABS: Anion Gap 6 mmol/L (6-16); Blood Urea Nitrogen 15 mg/dL (8-24); Bun/Creatinine Ratio 15.8 (12.0-20.0); CO2, Blood 25 mmol/L (21-32); Calcium, Blood 8.2 mg/dL (8.5-10.1); Chloride, Blood 108 mmol/L (98-108); Creatinine, Blood 0.95 mg/dL (0.60-1.20); Glomerular Filtration Rate >60 (60-); Glucose, Blood 77 mg/dL (70-99); Potassium, Blood 3.7 mmol/L (3.5-5.5); Sodium, Blood 139 mmol/L (136-145)
--- NOTE | 2020-05-21 15:07 | NUR ---
Met with pt this morning to discuss goals of care. Pt feels sure he needs to return to rehab for both PT and OT. Pt states part of his trouble is his depression, and that he is currently taking Zoloft 50mgs. He states he had a dose increase once in the past, and it was very helpful for his mood overall. Feels as though it may be time for another dose increase, as he admittedly is experiencing an increase in depression, which can contribute to his lack of motivation. Will present this information to hospitalist.
--- NOTE | 2020-05-21 17:21 | NUR ---
SHIFT SUMMARY PATIENT MEDICATED X2 FOR PAIN THIS SHIFT. DENIES NAUSEA AND SHORTNESS OF BREATH. PATIENT WORKED WITH PT TODAY, PATIENT ABLE TO STAND BRIEFLY AND THEN SIT ON EDGE OF BED. PATIENT ABLE TO VOID THIS SHIFT, URINE DARK AND CONCENTRATED. POST VOID BLADDER SCAN REVEALS 0 MLS RESIDUAL. EXORIATIONS UNDER PANNUS CLEANED AND NYSTATIN APPLIED. EATING AND DRINKING WELL. NEW ORDERS FOR 2000ML FLUID RESTRICTION. PLEASANT AND COOPERATIVE WITH CARE.
--- NOTE | 2020-05-22 04:29 | NUR ---
SHIFT SUMMARY NO ACUTE CHANGES TO REPORT THIS SHIFT. PT HAS RESTED MOST OF THE NIGHT. PT COMPLIANT WITH FLUID RESTRICTION. HE REFUSES Q2HR TURNS AND REQUESTS TO BE CHANGED ON HIS OWN SCHEDULE OR WHEN HE BECOMES UNCOMFORTABLE IN BED. PT MEDICATED FOR PAIN PRN. VITALS STABLE. ASSESSMENT UNCHANGED. BED IN LOWEST POSITION, CALL LIGHT WITHIN REACH.
--- NOTE | 2020-05-22 16:47 | NUR ---
SHIFT SUMMARY PATIENT MEDICATED X2 FOR PAIN THIS SHIFT. DENIES NAUSEA AND SHORTNESS OF BREATH. PATIENT ABLE TO HELP WITH ROLLING AND BOOSTING IN BED. LEGS CONTINUE TO BE EDEMATOUS AND PAINFUL WITH MOVEMENT. EATING AND DRINKING WELL. PLEASANT AND COOPERATIVE WITH CARE.
--- NOTE | 2020-05-23 05:21 | NUR ---
SHIFT SUMMARY PT HAS RESTED OFF AND ON T/O THE SHIFT. PT IS A HEAVY 2-3 PERSON TURN AND CHANGE. HE WAS INCONTINENT THIS SHIFT AFTER MISSING THE URINAL. LINEN AND DRESSING CHANGES WERE REQUIRED. DRESSING CHANGES TO BILAT EXT CHANGED THIS SHIFT. PT BECOMES VERY SOB, AND SATS DROP TO THE MID 80'S WITH EXERTION TURNING AND CHANGING. PT O2 SATS QUICKLY RECOVER AFTER ACTIVITY. PT MEDICATED FOR PAIN PER EMAR ORDERS. NO ACUTE CHANGES IN ASSESSMENT. BED IN LOWEST POSITION, CALL LIGHT WITHIN REACH.
--- NOTE | 2020-05-23 06:19 | NUR ---
BLADDER SCAN BLADDER SCAN 692. PT VOIDED 400 MLS WITH DIFFICULTY POST SCAN.
--- NOTE | 2020-05-23 20:31 | NUR ---
1914 REPORT RECEIVED FROM ALIA PURVIS WITH CARE ASSUMED; PTS BLE DRESSING DRY AND INTACT; PT HAS LARGE AMOUNTS DRIED SCALLY SKIN NOTED BLE.
--- NOTE | 2020-05-23 22:17 | NUR ---
ADMIT: 05/20/20 DISCHARGE: 05/24/20 DX: lactic acidosis, unable to ambulate CC: cpeabody ADMIT: 12/28/19 DISCHARGE: 01/01/20 DX: ACUTE KIDNEY INJURY ADMIT: 10/23/19 DISCHARGE: 10/27/19 DX: CELLULITIS ADMIT: 07/02/19 DISCHARGE: 07/08/19 DX: SEPSIS ADMIT: 03/25/19 DISCHARGE: 03/28/19 DX:OSTEOMYELITIS ADMIT: 12/14/18 DISCHARGE:12/16/18 DX: WEAKNESS, MUSCLE ASHWIN CALL: Met with Viraj d/c to [facility] for SNF 05/24/20 RESIDENCE: 05/23/20 would like to move to Adult foster or Assisted living. Home with daughter CAREGIVER: Avelina Vizcarra, daughter, Elan Vizcarra, Parent, Karolina [employer] business case analyst [phone] DX: HTN, Afib, COPD, CHF, DM, see list DME: bariatric WC, hospital bed, O2, wound care supplies CCM: Referral 05/18/20 HOME HEALTH: 07/08/19 [facility] FOR PT OT WOUNDCARE, BATHAIDE. 07/08/19 [facility] REFUSED TO ACCEPT HIM DUE TO NON COMPLIANCE DURING PREVIOUS VISITS [facility] [id number] AMEDYSIS 2019 SUMMARY: Admit: 05/20/20 05/23/20 Met with Viraj, discussed that Viraj is not getting the care he needs at home with family, discussed his preference for placement, PT- OT recommend SNF, he would like [facility]. termite treater Viarj would like to move to foster home, assisted living or fci [facility]. s/w CLARIBEL Turc[employer] business case analyst, approved for placement and services with Medicaid. Snf form completed and given to Cait, Thais due balance paid by phone by Viraj. Notified that Viraj is accepted at [facility] Saturday by Tatiana MOYER. Plan to discharge Saturday, Karolina will look for placment post snf. 1: Lactic acid acidosis A/P: Improved with fluids, likely due to deep tissue injuries from immobility today. Infection cannot be ruled out, he refused straight cath and has been unable to void. RN and I discussed the need for collection, he agreed after describing using urojet and IV pain medication. - Awaiting UA results 2: Impaired mobility and personal care
--- NOTE | 2020-05-24 03:38 | NUR ---
SHIFT SUMMARY; 59 Y/O MORBID OBESE MALE RESTED COMFORTABLY ALL SHIFT; ALERT AND ORIENTED X4; PTS BLE LOWER EXTREMITIES DRESSING ARE DRY AND INTACT; PT C/O BLE/ABD PAIN RATED 8/10 WITH ROXICODONE 5MG PO GIVEN TWICE WITH GOOD RELIEF NOTED; PTS BLE SKIN ARE NOTED BE VERY DRY AND SCALLY WITH PT VOICING POOR HYGIENE HABITS AT HOME; BED ALARM APPLIED FOR SAFETY, BED LOW POSITION WITH CALL LIGHT AT SIDE.
[2020-05-24 08:01] LABS: BASOPHILS ABSOLUTE AUTO 0.07 K/mm3 (0.00-0.23); BASOPHILS PERCENT AUTO 1 % (0-2); EOSINOPHILS ABSOLUTE AUTO 0.75 K/mm3 (0.00-0.68); EOSINOPHILS PERCENT AUTO 10 % (0-6); Hemoglobin 10.8 g/dL (13.5-17.5); IMMATURE GRAN ABSOLUTE AUTO 0.04 K/mm3 (0.00-0.10); IMMATURE GRAN PERCENT AUTO 1 % (0-1); LYMPHOCYTES ABSOLUTE AUTO 0.71 K/mm3 (0.84-5.20); LYMPHOCYTES PERCENT AUTO 10 % (21-46); MONOCYTES ABSOLUTE AUTO 1.02 K/mm3 (0.16-1.47); MONOCYTES PERCENT AUTO 14 % (4-13); Mean Corpuscular HGB 22.7 pg (26.0-34.0); Mean Corpuscular HGB Conc 27.7 g/dL (31.5-36.5); Mean Corpuscular Volume 82 fL (80-100); Mean Platelet Volume 9.4 fL (9.1-12.4); NEUTROPHILS ABSOLUTE AUTO 4.89 K/mm3 (1.96-9.15); NEUTROPHILS PERCENT AUTO 66 % (41-73); Platelet Count 278 K/mm3 (150-400); RDW Coefficient Variation 17.6 % (11.7-14.2); RDW Standard Deviation 51.8 fL (35.1-46.3); Red Blood Cell Count 4.76 M/mm3 (4.30-5.90); White Blood Cell Count 7.48 K/mm3 (4.00-11.30)
[2020-05-24 08:23] LABS: Alanine Aminotransfer (ALT/SGP 24 U/L (12-78); Albumin, Blood 2.5 g/dL (3.4-5.0); Albumin/Globulin Ratio 0.4 (0.8-1.8); Alk Phos 122 U/L (50-136); Anion Gap 5 mmol/L (6-16); Aspartate Aminotrans (AST/SGOT 36 U/L (12-37); Bilirubin, Total 0.9 mg/dL (0.1-1.0); Blood Urea Nitrogen 28 mg/dL (8-24); Bun/Creatinine Ratio 22.2 (12.0-20.0); CO2, Blood 26 mmol/L (21-32); Calcium, Blood 8.2 mg/dL (8.5-10.1); Chloride, Blood 104 mmol/L (98-108); Creatinine, Blood 1.26 mg/dL (0.60-1.20); Globulin, Blood 5.6 g/dL (2.2-4.0); Glomerular Filtration Rate >60 (60-); Glucose, Blood 87 mg/dL (70-99); Potassium, Blood 4.7 mmol/L (3.5-5.5); Sodium, Blood 135 mmol/L (136-145); Total Protein, Blood 8.1 g/dL (6.4-8.2)
[2020-05-24 09:26] LABS: Influenza A, PCR NEGATIVE (NEGATIVE); Influenza B, PCR NEGATIVE (NEGATIVE); Resp Syncytial Virus, PCR NEGATIVE (NEGATIVE); SARS-Cov-2 (COVID-19) PCR, MMC NEGATIVE (NEGATIVE)
--- NOTE | 2020-05-24 18:29 | NUR ---
SHIFT SUMMARY PT WORKED WITH PHYSICAL AND OCCUPATIONAL THERAPY THIS SHIFT. PT RECEIVED A BED BATH WITH SKIN CARE DONE TO BLE/BUTTOCKS. MEDICATED FOR PAIN PER EMAR. NO ACUTE CHANGES THIS SHIFT. PLANS FOR PT TO DISCHARGE TOMORROW TO SNF. CALL LIGHT IN REACH. WILL CONTINUE TO MONITOR AND REPORT TO ONCOMING RN.
--- NOTE | 2020-05-25 03:55 | NUR ---
SHIFT SUMMARY ADMITTED FOR LACTIC ACIDOSIS. FULL CODE. PLAN TO EVALUATE FOR DISCHARGE TO SNF TOMORROW. ALERT AND ORIENTED X4. COOPERATIVE WITH CARE. OINTMENT APPLIED TO BLE THIS SHIFT. WORKING WITH PT AND OT. USES FWW AT HOME AT BASELINE. ON ELIQUIS. CURRENTLY HOME HEALTH VISITS ONCE A WEEK TO CARE FOR WOUNDS TO BLE. NO NEW CONCERNS THIS SHIFT.
--- NOTE | 2020-05-25 05:47 | NUR ---
DIRECTOR OF HEAD START/CTA I HAVE ROUNDED WITH THIS STUDENT, I HAVE PERSONALLY ASSESSED THIS PT AND I HAVE READ THIS STUDENT'S CHARTING. I AGREE WITH HER ASSESSMENT
--- NOTE | 2020-05-25 11:39 | NUR ---
Pt lying in bed for this visit. He sighs heavily when I knock at his door. He states he is waiting for PT to come do therapy, as he is being evaluated for SNF prior to returning kranthi. He has been planning to go to rehab after the hospital since his admission, as he did previously. He states he cannot be a burden to his daughter. No further issues identified at this time.
--- NOTE | 2020-05-25 16:48 | NUR ---
DISCHARGE NOTE- PT DISCHARGED TO [facility]. LIFT TRANSFER TO THE CHAIR. IV DC'D AT THE TIME OF DISCHARGE, TELE DC'D AT THE TIME OF DISCHARGE. PT WOUND CARE AND DRESSINGS CHANGED PRIOR TO DISCHARGE. PT TAKEN VIA WC TRANSPORT NO S&S OF DISTRESS NOTED AT THE TIME OF DISCHARGE.
--- NOTE | 2020-05-25 18:59 | NUR ---
ADMIT: 05/20/20 DISCHARGE: 05/25/20 DX: lactic acidosis, unable to ambulate CC: cpeabody ADMIT: 12/28/19 DISCHARGE: 01/01/20 DX: ACUTE KIDNEY INJURY ADMIT: 10/23/19 DISCHARGE: 10/27/19 DX: CELLULITIS ADMIT: 07/02/19 DISCHARGE: 07/08/19 DX: SEPSIS ADMIT: 03/25/19 DISCHARGE: 03/28/19 DX:OSTEOMYELITIS ADMIT: 12/14/18 DISCHARGE:12/16/18 DX: WEAKNESS, MUSCLE ASHWIN CALL: Met with liliana Cali to [facility] for SNF 05/25/20. [address] Dominguez or ashwin . RESIDENCE: 05/23/20 would like to move to Adult foster or Assisted living. CAREGIVER: Avelina Vizcarra, daughter, Elan Vizcarra, Parent, Karolina [facility] telehealth case manager [phone] DX: HTN, Afib, COPD, CHF, DM, see list DME: bariatric WC, hospital bed, O2, wound care supplies CCM: Referral 05/18/20 HOME HEALTH: 07/08/19 [facility] FOR PT OT WOUNDCARE, [facility]. 07/08/19 [facility] REFUSED TO ACCEPT HIM DUE TO NON COMPLIANCE DURING PREVIOUS VISITS [facility] [id number] AMEDYSIS 2019 SUMMARY: Admit: 05/20/20 05/25/20 Discharge to [facility] for snf. He would like to move to care facility of some type post discharge from [facility]. Karolina from [employer] will be looking for places. Call [facility] for ashwin, Will need daily wound care to lower legs. DR Byrd or ashwin for 1 week follow up. cp
== END 2020-05-25 16:48 ==
LOC: ER 13:56 → MEDS 13:57
PROVIDERS: Family Medicine; Nurse Practitioner Acute Care; Physician Assistant; ADMIT Internal Medicine
DX: E87.2 Acidosis (principal); Z74.09 Other reduced mobility; I87.2 Venous insufficiency (chronic) (peripheral); L89.896 Pressure-induced deep tissue damage of other site; B37.2 Candidiasis of skin and nail; J44.9 Chronic obstructive pulmonary disease, unspecified; G47.33 Obstructive sleep apnea (adult) (pediatric); I11.0 Hypertensive heart disease with heart failure; I50.32 Chronic diastolic (congestive) heart failure; I48.91 Unspecified atrial fibrillation; E11.51 Type 2 diabetes mellitus with diabetic peripheral angiopathy without gangrene; E78.5 Hyperlipidemia, unspecified; E66.01 Morbid (severe) obesity due to excess calories; Z68.42 Body mass index [BMI] 45.0-49.9, adult; L89.326 Pressure-induced deep tissue damage of left buttock; L89.316 Pressure-induced deep tissue damage of right buttock; F41.8 Other specified anxiety disorders; J96.10 Chronic respiratory failure, unspecified whether with hypoxia or hypercapnia; G89.29 Other chronic pain; N40.1 Benign prostatic hyperplasia with lower urinary tract symptoms; R33.8 Other retention of urine; N39.498 Other specified urinary incontinence; N13.8 Other obstructive and reflux uropathy; R62.7 Adult failure to thrive; L28.0 Lichen simplex chronicus; L03.90 Cellulitis, unspecified; F11.20 Opioid dependence, uncomplicated; R15.9 Full incontinence of feces; L89.151 Pressure ulcer of sacral region, stage 1; L89.152 Pressure ulcer of sacral region, stage 2; E86.9 Volume depletion, unspecified; Z74.1 Need for assistance with personal care; Z63.8 Other specified problems related to primary support group; Z79.01 Long term (current) use of anticoagulants; Z79.84 Long term (current) use of oral hypoglycemic drugs; Z79.82 Long term (current) use of aspirin; Z20.822 Contact with and (suspected) exposure to COVID-19
CPT/HCPCS: 0241U; 36415; 71045; 80048; 80053; 82550; 82553; 82947; 83605; 83880; 84439; 84443; 84481; 84484; 84550; 85025; 85610; 85730; 87040; 93005; 93010; 94760; 94762; 97110; 97163; 97166; 97530; 99285-25; A9270; A9270-GY; J1170; J7030

== ENCOUNTER → 2020-06-05 | Outpatient (CLI) | payer OTHER ==
[~2020-06-05] MED LIST changes: +KLOR-CON 1010 ME1 PO; +NEURONTIN300 MG PO; +PANTOPRAZOLE SO40 M2 PO
[2020-06-05 10:59] LABS: Albumin, Blood 2.6 g/dL (3.4-5.0); Anion Gap 3 mmol/L (6-16); Blood Urea Nitrogen 41 mg/dL (8-24); Bun/Creatinine Ratio 34.2 (12.0-20.0); CO2, Blood 35 mmol/L (21-32); Calcium, Blood 8.2 mg/dL (8.5-10.1); Chloride, Blood 95 mmol/L (98-108); Glomerular Filtration Rate >60 (60-); Glucose, Blood 143 mg/dL (70-99); Potassium, Blood 2.5 mmol/L (3.5-5.5); Sodium, Blood 133 mmol/L (136-145)
== END | disposition home or self-care (01) ==
LOC: EDSTATUS 10:09 → LAB RH 10:35
PROVIDERS: Internal Medicine Nephrology
DX: N18.30 Chronic kidney disease, stage 3 unspecified (principal)
CPT/HCPCS: 80069; 85018

== ENCOUNTER → 2020-06-06 | Outpatient (CLI) | payer OTHER ==
[2020-06-06 10:26] LABS: Magnesium, Blood 1.8 mg/dL (1.6-2.4); Potassium, Blood 3.1 mmol/L (3.5-5.5)
== END | disposition home or self-care (01) ==
LOC: LAB RH 10:00 → EDSTATUS 10:09
PROVIDERS: Internal Medicine Nephrology
DX: N18.30 Chronic kidney disease, stage 3 unspecified (principal)
CPT/HCPCS: 83735; 84132